=== PATIENT | male | born 1995 | race Hispanic/Latino ===

== ENCOUNTER → 2017-01-29 | Outpatient (CLI) | payer OTHER ==
[~2017-01-29] MED LIST: IOPAMIDOL 370 MG/ML 200 ML INFUS..BTL INJ ONE; SODIUM CHLORIDE 0.9% 50ML 50 ML ONE
--- NOTE | 2017-01-29 12:04 | Diagnostic Imaging Report ---
PROCEDURE: CT ABDOMEN AND PELVIS WITH CONTRAST TECHNIQUE: The abdomen and pelvis were scanned utilizing a multidetector helical scanner from the diaphragm to the lesser trochanter after the IV administration of 100 cc of Isovue 370 and the oral administration of water. Coronal and sagittal multiplanar reformations were obtained. COMPARISON: None. INDICATIONS: ABDOMINAL WALL LUMP FINDINGS: LOWER THORAX: Unremarkable HEPATOBILIARY: 3-4 mm hypodense lesion in hepatic segment VII (series 2 image 12), which is too small to characterize, but likely represent a small cyst. No other focal hepatic lesions. No biliary ductal dilatation. Gallbladder is unremarkable. SPLEEN: No splenomegaly. PANCREAS: No focal masses or ductal dilatation. ADRENALS: No adrenal nodules. KIDNEYS/URETERS: No hydronephrosis, stones, or solid mass lesions. PELVIC ORGANS/BLADDER: Bladder and prostate are unremarkable. PERITONEUM / RETROPERITONEUM: No free air or fluid. LYMPH NODES: No lymphadenopathy. VESSELS: Unremarkable. GI TRACT: No bowel dilation or evidence of obstruction. No pericolonic inflammatory changes. No wall thickening. BONES AND SOFT TISSUES: No acute bony abnormalities. No lytic lesions. Soft tissues are grossly unremarkable. Specifically, no soft tissue masses noted in the region of referred "lump". Normal skin, subcutaneous fat and underlying muscle is noted. IMPRESSION: 1. No abdominal wall abnormalities. Specifically, no focal mass or fluid collection is noted in the region of referred "lump". 2. No acute abdominopelvic abnormalities. Harsh Martinez M.D. Dictated by: Harsh Martinez M.D. on 01/29/2017 at 12:12 Electronically approved by: Harsh Martinez M.D. on 01/29/2017 at 12:12
== END ==
LOC: CT 07:34
PROVIDERS: ATTEND Internal Medicine Gastroenterology
DX: R22.2 Localized swelling, mass and lump, trunk (principal)
CPT/HCPCS: 74177; Q9967